=== PATIENT | female | born 1975 | race Caucasian/White ===

== ENCOUNTER → 2016-12-22 | Outpatient (CLI) | payer OTHER ==
--- NOTE | ~2016-12-22 | MR17 ---
[facility] A Service of [facility] RADIOLOGY TEXT RESULTS PATIENT: KENNEDY MONTAÑO LOCATION: [facility] : 77 UNIT #: [id number] AGE: [address]: DORINA WHITAKER MD SEX: F ORDER DR: [id number] [place], [place] [address] [id number] O MR#: [id number] Acc #: [id number] NAME: KENNEDY MONTAÑO. : 1975 SEX: F STUDY DATE/TIME: 12/22/2016 18:05 UNIT: [facility] ROOM: STUDY DESCRIPTION: MR Brain WWo Contrast Attending Physician: Dorina Whitaker M.D. Referring Physician: Dorina Whitaker M.D. Ordering Physician: Raji Whitaker M.D. Primary Care Physician: Talha Meléndez M.D. MRI CENTER REPORT This report is preliminary unless electronic signature is present. EXAM Brain MR with and without contrast 12/22/2016 CLINICAL HISTORY Visual disturbance with double vision, blurred vision and headache for 8 days. PROCEDURE Brain MR with and without contrast. COMPARISON STUDIES None FINDINGS There is no MR evidence of acute ischemia or other restricted diffusion. There is no hydrocephalus or extraaxial fluid collection. The brain is structurally normal. Brain parenchymal signal is normal. Bone marrow signal is normal and the extracranial soft tissues are normal. Post contrast images show no mass or abnormal enhancement. 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 IMPRESSION Normal brain MR with and without contrast. Dictated by... Paco Jo M.D. THIS IS AN ELECTRONICALLY VERIFIED REPORT Paco Jo M.D. at 12/29/2016 5:37 PM CAMILA/ruma [facility] A Service of [facility] RADIOLOGY TEXT RESULTS PATIENT: KENNEDY MONTAÑO LOCATION: [facility] : 77 UNIT #: [id number] AGE: [address]: DORINA WHITAKER MD SEX: F ORDER DR: TD: 12/25/2016 15:54 JOB #: [id number] MRI CENTER REPORT Page 1 of 1 COPY
--- NOTE | ~2016-12-22 | MR148 ---
[facility] A Service of [facility] RADIOLOGY TEXT RESULTS PATIENT: KENNEDY MONTAÑO LOCATION: CM[facility] : 77 UNIT #: [id number] AGE: [address]: DORINA WHITAKER MD SEX: F ORDER DR: [id number] [address] [address] [id number] O MR#: [id number] Acc #: [id number] NAME: KENNEDY MONTAÑO : 1975 SEX: F STUDY DATE/TIME: 12/22/2016 18:05 UNIT: [facility] ROOM: STUDY DESCRIPTION: MR Orbit Face and or Neck WWo Attending Physician: Dorina Whitaker M.D. Referring Physician: Dorina Whitaker M.D. Ordering Physician: Raji Whitaker M.D. Primary Care Physician: Talha Meléndez M.D. MRI CENTER REPORT This report is preliminary unless electronic signature is present. 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 COMPARISON STUDIES None PROCEDURE Orbit MR with and without contrast. FINDINGS The supra and parasellar regions are normal. The chiasm and cisternal optic nerves and optic tracts are normal. Within the orbits signal is normal in the optic nerves. The orbital fat, extraocular muscles, lacrimal glands and globes appear normal. Post contrast images show no abnormal enhancement on either side. IMPRESSION Normal orbit MR with and without contrast. Dictated by... Paco Jo M.D. THIS IS AN ELECTRONICALLY VERIFIED REPORT Paco Jo M.D. at 12/29/2016 5:37 PM CAMILA/jf [facility] A Service Community [facility] RADIOLOGY TEXT RESULTS PATIENT: KENNEDY MONTAÑO LOCATION: CM[facility] : 77 UNIT #: [id number] AGE: [address]: DORINA WHITAKER MD SEX: F ORDER DR: TD: 12/25/2016 15:45 JOB #: [id number] MRI CENTER REPORT Page 1 of 1 COPY
== END | disposition home or self-care (01) ==
LOC: CMRI 17:00
DX: H53.2 Diplopia (principal); H54.62 Unqualified visual loss, left eye, normal vision right eye
CPT/HCPCS: 70543; 70553; A9577